=== PATIENT | male | born 1955 | race Caucasian/White ===

== ENCOUNTER → 2017-08-11 | Outpatient (CLI) | payer BC ==
[~2017-08-11] MED LIST: ALBU8.5H8 PO; BECL8.7A7 INH; DOCU100C33 PO; FAMO40TA61 PO; FLUO10CA13 PO; FLUT1DIS3 INH; HYDR-3307 PO; LORA-445 PO; METH750T87 PO; ONDA4TAB7 PO; OXYB5TAB7 PO; SALM50DI PO; SIMV10TA PO; TAMS-11 PO; phenergan PO
[2017-08-11 09:00] LABS: HEMATOCRIT 48.4 % (39.2-51.8); HEMOGLOBIN 16.6 g/dL (13.7-18.0); WHITE BLOOD COUNT 6.5 x10^3/uL (3.4-10)
[2017-08-11 09:11] LABS: BLOOD UREA NITROGEN 18 mg/dL (7-18)
== END | disposition home or self-care (01) ==
LOC: STAR 08:04
PROVIDERS: ATTEND Neurological Surgery
DX: Z01.818 Encounter for other preprocedural examination (principal); R94.31 Abnormal electrocardiogram [ECG] [EKG]; G56.21 Lesion of ulnar nerve, right upper limb; R79.1 Abnormal coagulation profile
CPT/HCPCS: 36415; 71020; 80048; 85025; 85610; 85730; 93005

== ENCOUNTER 2017-08-24 05:40 | Day surgery (SDC) | payer BC ==
[2017-08-11 08:32] VITALS: BP 129/87
[~2017-08-24] VITALS: Ht 177.8 cm; Wt 80.0 kg
[2017-08-24] MEDS ORDERED: LIDOCAINE 1%, 2ML ONE (06:12)
[2017-08-24] MEDS ORDERED: LACTATED RINGERS 1,000 ML IV SCH (06:28)
[2017-08-24] MEDS ORDERED: LIDOCAINE 1%, 2ML SQ PRN (06:30)
[2017-08-24] MEDS ORDERED: CEFAZOLIN 1,000 MG ONE ×2 (06:54→07:32)
[2017-08-24] MEDS ORDERED: LIDOCAINE-MPF 2% ,5ML ONE (06:54)
[2017-08-24] MEDS ORDERED: PROPOFOL 10 MG/ML, 20ML ONE (06:54)
[2017-08-24] MEDS ORDERED: FENTANYL PF 100 MCG/2ML ONE (06:55)
[2017-08-24] MEDS ORDERED: MIDAZOLAM 1 MG/ML, 2ML ONE (06:55)
[2017-08-24] MEDS ORDERED: BUPIVACAINE/PF 0.5% ONE ×2 (06:59)
[2017-08-24] MEDS ORDERED: PROMETHAZINE 25 MG/ML, 1ML IV PRN (07:30)
[2017-08-24] MEDS ORDERED: OXYcodone 5 MG/5 ML ORAL.SOL UDC PO PRN (07:30)
[2017-08-24] MEDS ORDERED: MEPERIDINE/PF 25MG/0.5ML IVPush PRN (07:30)
[2017-08-24] MEDS ORDERED: FENTANYL PF 100 MCG/2ML IV PRN (07:30)
[2017-08-24] MEDS ORDERED: ALBUTEROL SULFATE 2.5 MG/3 ML NPPB PRN (07:30)
[2017-08-24] MEDS ORDERED: ACETAMINOPHEN 325 MG TABLET PO PRN (07:30)
[2017-08-24] MEDS ORDERED: HYDROmorphone 1 MG/ML, 1ML IV PRN (07:30)
[2017-08-24] MEDS ORDERED: DEXAMETHASONE 4 MG/ML, 1ML ONE (07:32)
[2017-08-24] MEDS ORDERED: PHENYLEPHRINE 10 MG/ML ONE (07:32)
[2017-08-24] MEDS ORDERED: ONDANSETRON 2MG/ML, 2ML ONE (07:32)
[2017-08-24] MEDS ORDERED: BACITRACIN OINT 500U/GM, 15 GM TP ONE (08:29)
[2017-08-24] MEDS ORDERED: ACETAMINOPHEN 325 MG TABLET ONE (09:29)
[2017-08-24] MEDS ORDERED: ACETAMINOPHEN 650 MG/20.3 ML UDC ONE (09:29)
== END 2017-08-24 11:20 | disposition home or self-care (01) ==
LOC: OUT 05:40
PROVIDERS: ATTEND Neurological Surgery
DX: G56.21 Lesion of ulnar nerve, right upper limb (principal); J45.909 Unspecified asthma, uncomplicated; K21.9 Gastro-esophageal reflux disease without esophagitis; E78.5 Hyperlipidemia, unspecified; Z88.0 Allergy status to penicillin
CPT/HCPCS: 64718; J0690; J1100; J2250; J2370; J2405; J2704; J3010; J3490; J7120